=== PATIENT | male | born 1960 | race Caucasian/White ===

== ENCOUNTER 2021-03-10 15:21 | Observation (INO) ==
[2021-03-10 16:20] LABS: Basophils # 0.1 K/mcL (0.0-0.2); Basophils % 0.5 %; Eosinophils # 0.1 K/mcL (0.0-0.6); Eosinophils % 1.1 %; Hematocrit 40.7 % (37.5-50.1); Hemoglobin 13.4 g/dL (12.9-16.9); Immature Granulocytes % 0.2 % (0-4); Lymphocytes # 2.5 K/mcL (0.6-4.6); Lymphocytes % 24.9 %; Mean Corpuscular HGB Conc 32.9 g/dL (31.6-35.5); Mean Corpuscular Hemoglobin 31.7 pg (28.0-33.3); Mean Corpuscular Volume 96.2 fL (83.0-100.0); Mean Platelet Volume 10.5 fL (9.4-12.4); Monocytes # 0.7 K/mcL (0.0-1.3); Monocytes % 7.2 %; Neutrophils # 6.6 K/mcL (1.6-8.9); Platelet Count 227 K/mcL (140-400); Red Blood Count 4.23 M/mcL (4.19-5.50); Red Cell Distribution Width 13.2 % (11.5-14.5); Segmented Neutrophils % 66.1 %
[2021-03-10 16:27] LABS: INR 1.1; Prothrombin Time 12.9 Seconds (9.4-12.1)
[2021-03-10 16:28] LABS: Bilirubin,Urine Negative (Negative); Blood,Urine Negative (Negative); Clarity,Urine Clear (Clear); Color,Urine Light-Yellow (Yellow); Glucose,Urine (UA) Normal (Normal); Ketones,Urine Negative (Negative); Leukocyte Esterase,Urine Negative (Negative); Mucus,Urine Few per lpf (None-Few); Nitrite,Urine Negative (Negative); PH,Urine 5.5 pH Units (5.0-8.0); Protein,Urine 70 mg/dL (Neg-Trace); RBC,Urine 0-3 per hpf (0-3); Specific Gravity,Urine 1.022 (1.010-1.025); Urobilinogen,Urine Normal (Normal); WBC,Urine 0-3 per hpf (0-3)
[2021-03-10 16:29] LABS: Activated Partial Thrombo Time 28.4 Seconds (26.0-36.0)
[2021-03-10 16:47] LABS: BUN/Creatinine Ratio 14 (6-26); Blood Urea Nitrogen 16 mg/dL (8-23); Calcium 9.3 mg/dL (8.6-10.3); Carbon Dioxide 28 mEq/L (23-29); Chloride 102 mEq/L (98-107); Glucose 123 mg/dL (70-105); Magnesium 1.5 mg/dL (1.6-2.6); Osmolality,Calculated 291 (280-300); Sodium 139 mEq/L (136-145); Troponin I < 0.03 ng/mL (< 0.04); eGFR For African Americans > 60 (> 60); eGFR For Non-African Americans > 60 (> 60)
[2021-03-10 16:51] LABS: Thyroid Stimulating Hormone 2.552 mcIU/mL (0.340-5.600)
[2021-03-10] MEDS ORDERED: Furosemide 40 MG in 0.9 % Sodium Chloride 50 ML IVPB ONE (17:46)
[2021-03-10] MEDS ORDERED: Furosemide 40 MG/4 ML VIAL IVP ONE (17:59)
[2021-03-10] MEDS ORDERED: *HR* Heparin 5,000 UNIT/ML VIAL IVP PRN ×2 (18:01)
[2021-03-10] MEDS ORDERED: *HR* Heparin 5,000 UNIT/ML VIAL IVP ONE (18:01)
[2021-03-10] MEDS: Heparin 25,000UNIT/250ML 1/2NS 25,000 UNIT/250 ML IV.SOLN IVC SCH (18:52)
[2021-03-10 19:11] LABS: Hematocrit 40.4 % (37.5-50.1); Hemoglobin 13.2 g/dL (12.9-16.9); Mean Corpuscular HGB Conc 32.7 g/dL (31.6-35.5); Mean Corpuscular Volume 94.8 fL (83.0-100.0); Mean Platelet Volume 10.3 fL (9.4-12.4); Platelet Count 233 K/mcL (140-400); Red Blood Count 4.26 M/mcL (4.19-5.50); White Blood Count 13.5 K/mcL (4.3-11.1)
[2021-03-10 19:19] LABS: Heparin anti-factor XA UFH < 0.04 IU/mL (0.30-0.70); INR 1.1; Prothrombin Time 12.7 Seconds (9.4-12.1)
[2021-03-10] MEDS ORDERED: Ondansetron 4 MG/2 ML VIAL IVP PRN (20:51)
[2021-03-10] MEDS ORDERED: Naloxone 0.4 MG/ML INJ IVP PRN (20:51)
[2021-03-10] MEDS ORDERED: D5% in Water 1,000 ML IVC PRN (21:42)
[2021-03-10] MEDS ORDERED: Dextrose Gel 15 GM/37.5 ML TUBE PO PRN ×2 (21:42)
[2021-03-10] MEDS ORDERED: *HR* Dextrose 50 % in Water (Vial) 50 ML VIAL IVP PRN (21:42)
[2021-03-10] MEDS ORDERED: *HR* Metoprolol 5 MG/5 ML VIAL IVP PRN (22:15)
[2021-03-10] MEDS: Insulin LISPRO 300 UNITS/3 ML VIAL SUBQ SCH (22:26)
[2021-03-10] MEDS: *HR* HYDROcodone/Acet 10/325 mg TABLET PO PRN (23:26)
[2021-03-10] MEDS: *HR* LORazepam 0.5 MG TABLET PO PRN (23:26)
[2021-03-10] MEDS: Gabapentin 300 MG CAPSULE PO SCH (23:26)
[2021-03-11] MEDS ORDERED: Perflutren Lipid Microsphere 1.3 ML in 0.9 % Sodium Chloride 8.7 ML IVP PRN (02:36)
[2021-03-11 02:41] LABS: Hematocrit 40.5 % (37.5-50.1); Hemoglobin 13.4 g/dL (12.9-16.9); Mean Corpuscular HGB Conc 33.1 g/dL (31.6-35.5); Mean Corpuscular Hemoglobin 31.5 pg (28.0-33.3); Mean Corpuscular Volume 95.1 fL (83.0-100.0); Mean Platelet Volume 11.2 fL (9.4-12.4); Platelet Count 223 K/mcL (140-400); Red Blood Count 4.26 M/mcL (4.19-5.50); Red Cell Distribution Width 13.1 % (11.5-14.5); White Blood Count 13.3 K/mcL (4.3-11.1)
[2021-03-11 02:54] LABS: BUN/Creatinine Ratio 15 (6-26); Blood Urea Nitrogen 15 mg/dL (8-23); Calcium 9.3 mg/dL (8.6-10.3); Carbon Dioxide 26 mEq/L (23-29); Chloride 100 mEq/L (98-107); Glucose 141 mg/dL (70-105); Osmolality,Calculated 289 (280-300); Potassium 3.4 mEq/L (3.5-5.1); Sodium 138 mEq/L (136-145); eGFR For African Americans > 60 (> 60); eGFR For Non-African Americans > 60 (> 60)
[2021-03-11] MEDS: tiZANidine 4 MG TABLET PO PRN ×2 (03:00→17:25)
[2021-03-11] MEDS: Insulin LISPRO 300 UNITS/3 ML VIAL SUBQ SCH ×4 (07:13→21:41)
[2021-03-11] MEDS ORDERED: Furosemide 40 MG TABLET PO SCH (08:00)
[2021-03-11] MEDS: Cholecalciferol (D-3) 1,000 UNIT (25MCG) TABLET PO SCH (08:30)
[2021-03-11] MEDS: Cyanocobalamin (B-12) 1,000 MCG TABLET PO SCH (08:31)
[2021-03-11] MEDS: Aspirin 81 MG TAB.CHEW PO SCH (08:31)
[2021-03-11] MEDS: Gabapentin 300 MG CAPSULE PO SCH ×3 (08:31→21:46)
[2021-03-11] MEDS: Folic Acid 1 MG TABLET PO SCH (08:31)
[2021-03-11] MEDS: *HR* HYDROcodone/Acet 10/325 mg TABLET PO PRN ×3 (08:35→22:01)
[2021-03-11] MEDS ORDERED: amLODIPine 5 MG TABLET PO SCH (09:00)
[2021-03-11] MEDS ORDERED: hydroCHLOROthiazide 25 MG TABLET PO SCH (09:00)
[2021-03-11] MEDS: Heparin 25,000UNIT/250ML 1/2NS 25,000 UNIT/250 ML IV.SOLN IVC SCH (12:46)
[2021-03-11] MEDS: Furosemide 40 MG/4 ML VIAL IVP SCH (21:45)
[2021-03-11] MEDS: *HR* LORazepam 0.5 MG TABLET PO PRN (21:45)
[2021-03-12] MEDS: tiZANidine 4 MG TABLET PO PRN (01:53)
[2021-03-12 05:19] LABS: Basophils # 0.1 K/mcL (0.0-0.2); Basophils % 0.5 %; Eosinophils # 0.2 K/mcL (0.0-0.6); Eosinophils % 2.1 %; Hematocrit 35.9 % (37.5-50.1); Hemoglobin 12.2 g/dL (12.9-16.9); Immature Granulocytes % 0.3 % (0-4); Lymphocytes # 3.6 K/mcL (0.6-4.6); Lymphocytes % 34.5 %; Mean Corpuscular Hemoglobin 32.3 pg (28.0-33.3); Mean Platelet Volume 10.9 fL (9.4-12.4); Monocytes # 0.9 K/mcL (0.0-1.3); Monocytes % 8.4 %; Neutrophils # 5.7 K/mcL (1.6-8.9); Platelet Count 211 K/mcL (140-400); Red Blood Count 3.78 M/mcL (4.19-5.50); Red Cell Distribution Width 13.1 % (11.5-14.5); Segmented Neutrophils % 54.2 %; White Blood Count 10.5 K/mcL (4.3-11.1)
[2021-03-12 05:38] LABS: BUN/Creatinine Ratio 16 (6-26); Blood Urea Nitrogen 19 mg/dL (8-23); Calcium 8.6 mg/dL (8.6-10.3); Carbon Dioxide 27 mEq/L (23-29); Chloride 102 mEq/L (98-107); Glucose 160 mg/dL (70-105); Magnesium 1.6 mg/dL (1.6-2.6); Osmolality,Calculated 290 (280-300); Potassium 3.6 mEq/L (3.5-5.1); Sodium 137 mEq/L (136-145); eGFR For African Americans > 60 (> 60); eGFR For Non-African Americans > 60 (> 60)
[2021-03-12 06:14] LABS: Platelet Estimate Normal (Normal); Reactive Lymphocytes Present (Not Present)
[2021-03-12] MEDS: *HR* HYDROcodone/Acet 10/325 mg TABLET PO PRN ×2 (06:28→13:32)
[2021-03-12] MEDS: Heparin 25,000UNIT/250ML 1/2NS 25,000 UNIT/250 ML IV.SOLN IVC SCH (06:57)
[2021-03-12] MEDS: Furosemide 40 MG/4 ML VIAL IVP SCH (08:13)
[2021-03-12] MEDS: Gabapentin 300 MG CAPSULE PO SCH (08:13)
[2021-03-12] MEDS: Aspirin 81 MG TAB.CHEW PO SCH (08:14)
[2021-03-12] MEDS: Cyanocobalamin (B-12) 1,000 MCG TABLET PO SCH (08:14)
[2021-03-12] MEDS: Cholecalciferol (D-3) 1,000 UNIT (25MCG) TABLET PO SCH (08:14)
[2021-03-12] MEDS: Folic Acid 1 MG TABLET PO SCH (08:14)
[2021-03-12] MEDS: Insulin LISPRO 300 UNITS/3 ML VIAL SUBQ SCH ×2 (08:15→14:41)
[2021-03-12] MEDS ORDERED: Regadenoson 0.4 MG/5 ML SYRINGE IVP ONE (08:45)
[2021-03-12 08:57] LABS: Troponin I < 0.03 ng/mL (< 0.04)
[2021-03-12 10:34] VITALS: BP 155/90; PULSE 65; TEMP 97.8; O2SAT 91
[2021-03-12] MEDS ORDERED: Apixaban 5 MG TABLET PO SCH (11:00)
[2021-03-13] MEDS ORDERED: Furosemide 40 MG TABLET PO SCH (09:00)
== END 2021-03-12 15:58 | disposition home or self-care (01) ==
LOC: EMEROOARM 15:21 → 3BNU 15:21 → SUATTDRO 19:30 → 3ANU 20:23
PROVIDERS: ADMIT Internal Medicine; ATTEND General Practice